=== PATIENT | female | born 1975 | race Caucasian/White ===

== ENCOUNTER 2023-10-05 15:18 | Emergency (ER) | payer MEDICAID ==
[~2023-10-05] VITALS: Ht 144.8 cm; Wt 80.7 kg
[~2023-10-05 15:18] MED LIST: AUG875 PO; IBUP-1969 PO
[2023-10-05 16:10] VITALS: BP_SYST 122; PULSE 78; RESP 18; TEMP 98.9; O2SAT 100
[2023-10-05 16:13] VITALS: BP_SYST 122; PULSE 78; RESP 18; TEMP 98.9; O2SAT 100
== END 2023-10-05 18:25 | disposition home or self-care (01) ==
LOC: SED 15:18
DX: H66.91 Otitis media, unspecified, right ear (principal); R51.9 Headache, unspecified
CPT/HCPCS: 99282